=== PATIENT | male | born 1980 | race Caucasian/White ===

== ENCOUNTER 2016-09-15 00:36 | Emergency (ER) | payer OTHER ==
[2016-09-15 00:40] VITALS: TEMP 97.2
[2016-09-15] MEDS ORDERED: Bacitracin 500 Units/gm Oint Foilpak UD TOP ONE (00:45)
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
[2016-09-15 02:46] VITALS: BP 144/88; PULSE 94; RESP 16
[2016-09-15 03:31] VITALS: O2SAT 98
== END 2016-09-15 01:41 | disposition home or self-care (01) ==
LOC: C.ER 00:36
DX: S80.212A Abrasion, left knee, initial encounter (principal); Y04.0XXA Assault by unarmed brawl or fight, initial encounter; Y92.410 Unspecified street and highway as the place of occurrence of the external cause